=== PATIENT | female | born 1990 | race Caucasian/White ===

== ENCOUNTER 2022-06-14 12:06 | Outpatient (CLI) | payer OTHER, SELFPAY ==
[2022-06-14 13:04] LABS: Basophils Percent Auto 0.5 % (0.2-1.2); Eosinophils Absolute Auto 0.2 K/mm3 (0-0.3); Eosinophils Percent Auto 2.4 % (0-4.4); Hematocrit 38.6 % (37.0-47.0); Hemoglobin 13.4 g/dL (12.0-15.0); Immature Granulocyte Absolute 0.03 K/mm3 (0.00-0.031); Immature Granulocyte Percent A 0.4 % (0-0.5); Lymphocytes Absolute Auto 1.57 K/mm3 (0.9-3.2); Lymphocytes Percent Auto 21.1 % (18.3-44.2); Mean Corpuscular HGB Conc 34.7 g/dl (32-36); Mean Corpuscular Hemoglobin 30.7 pg (26-34); Mean Corpuscular Volume 88.5 fl (80-100); Mean Platelet Volume 9.6 fl (7.4-10.4); Monocytes Absolute Auto 0.7 K/mm3 (0.1-0.6); Neutrophils Absolute Auto 4.9 K/mm3 (1.3-6.7); Neutrophils Percent Auto 66.6 % (45.5-73.1); Platelet Count Result 275 k/mm3 (150-375); Red Blood Count 4.36 M/mm3 (4.2-5.4); Red Cell Distribution Width 12.1 % (11.5-14.5); White Blood Count 7.4 K/mm3 (4.5-10.0)
[2022-06-14 13:47] LABS: HIV 1/2 Ab P24 Ag Result Negative (Negative)
[2022-06-14 14:55] LABS: Hepatitis B Surface Anti Res Positive
[2022-06-14 16:05] LABS: Rubella IgG Antibody > 120.0 IU/ML
[2022-06-15 10:38] LABS: Hepatitis B Surface Antigen Negative (Negative)
[2022-06-15 11:28] LABS: Rapid Plasma Reagin Non-Reactive (NonReactive)
[2022-06-17 15:45] LABS: CMV IgG Antibody <0.60 U/mL (<0.60)
[2022-06-19 15:17] LABS: SMA 2.0 RISK VARIANT NOT DETECTED
[2022-06-24 07:57] LABS: CF Result NEGATIVE (NEGATIVE); Ethnicity NG
[2022-07-02 13:08] LABS: SMA Results Received Yes
== END 2022-06-14 12:07 | disposition home or self-care (01) ==
LOC: ANHLAB 12:17
PROVIDERS: PCP Family Medicine
DX: N91.2 Amenorrhea, unspecified (principal)
CPT/HCPCS: 36415; 81220; 81329; 85025; 86592; 86644; 86703; 86706; 86747; 86762; 86787; 86850; 86900; 86901; 87086; 87088; 87340; G0432

== ENCOUNTER 2023-01-13 15:52 | Outpatient (RCR) | payer OTHER, SELFPAY | END 2023-01-14 07:22 | disposition home or self-care (01) | LOC: ANHOBOP 15:52 | PROVIDERS: PCP Family Medicine; Visit Provider Obstetrics & Gynecology | DX: O48.0 Post-term pregnancy (principal); Z3A.40 40 weeks gestation of pregnancy | CPT/HCPCS: 59025; J2274 ==

== ENCOUNTER 2023-01-15 06:33 | Inpatient (IN) | payer OTHER, SELFPAY ==
[2023-01-15] VITALS (189 sets, daily range): BP systolic 76–138; BP diastolic 32–108; PULSE 63–121; TEMP 36.3–37.2; O2SAT 96–100; BMI 35.5
--- NOTE | 2023-01-15 07:34 | WPDANESEPP ---
Anes - Eval Pre Procedure Procedure: Labor Pain Management Date/Time: 01/15/23 07:34 Surgeon: Breanne Preop Diagnosis: Pain during labor Pre Op Diagnosis: IOL Patient Data Age: 32 Gender: F Height: Weight: Last Vital Signs Pulse 68 01/15/23 07:30 BP 127/75 01/15/23 07:30 Allergies Allergy/AdvReac Type Severity Reaction Status Date / Time Penicillins Allergy Intermediate Hives Verified 01/11/23 17:01 Home Medications Medication Instructions Recorded Confirmed Type vitamin-ferrous fumarate 1 cap PO DAILY 06/22/22 01/04/23 History 65 mg iron-folic acid 1 mg capsule aspirin 81 mg tablet,delayed 81 mg PO DAILY 11/02/22 01/04/23 History release (Adult Low Dose Aspirin) Patient hx anesthesia problems: none Family hx anesthesia problems: none Results Review: All pre-operative results and documents have been reviewed as part of the pre-operative evaluation. [facility] Past Medical History Medical History (Updated 01/15/23 @ 07:36 by Imani Brown CRNA) ADHD (attention deficit hyperactivity disorder) HPV in female Tobacco abuse Surgical History Surgical History History of removal of skin mole (12/31/19) skin tag removal from inner left thigh Family History Family History Father Diabetes mellitus Hypertension Social History Social History (Updated 01/15/23 @ 07:31 by Imani Brown CRNA) Smoking status: Former smoker Tobacco type: cigarettes Smoking end date: 01/18/22 Alcohol intake: current Drinks per week: 1 Substance use: never Substance use type: does not use Lack of Transportation: No Lack of Food: Never True Current Housing: I Have Housing Concerned About Future Housing: No Difficulty Paying Gas/Electric Bills: No Difficulty Paying for Meds: No Currently Unemployed: No Education: Bachelor's Degree Difficulty w/ Childcare or Family Care: No Living arrangements: other Additional living arrangements comments: Occupation/Education: occupation 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
[2023-01-15 08:02] LABS: Basophils Percent Auto 0.4 % (0.2-1.2); Eosinophils Percent Auto 0.5 % (0-4.4); Hematocrit 39.7 % (37.0-47.0); Hemoglobin 13.6 g/dL (12.0-15.0); Immature Granulocyte Absolute 0.03 K/mm3 (0.00-0.031); Immature Granulocyte Percent A 0.4 % (0-0.5); Lymphocytes Absolute Auto 1.33 K/mm3 (0.9-3.2); Lymphocytes Percent Auto 16.2 % (18.3-44.2); Mean Corpuscular HGB Conc 34.3 g/dl (32-36); Mean Corpuscular Volume 87.6 fl (80-100); Mean Platelet Volume 10.2 fl (7.4-10.4); Monocytes Absolute Auto 0.7 K/mm3 (0.1-0.6); Monocytes Percent Auto 8.3 % (2.6-8.5); Neutrophils Absolute Auto 6.1 K/mm3 (1.3-6.7); Neutrophils Percent Auto 74.2 % (45.5-73.1); Platelet Count Result 219 k/mm3 (150-375); Red Blood Count 4.53 M/mm3 (4.2-5.4); Red Cell Distribution Width 12.2 % (11.5-14.5); White Blood Count 8.2 K/mm3 (4.5-10.0)
--- NOTE | 2023-01-15 08:21 | LDADM ---
This patient, Julianna Carr, was admitted to Labor/Delivery/Recovery 107 on 01/15/23 at 06:33. Plans for labor, pain management and were discussed with patient. Patient/family oriented to hospital policies and general routines including ID bracelet, bed and alarms, visiting hours, pain management, procedures, bathroom and other care routines, personal items, smoking policy, room service/diet and guest tray routines, infant security routines, and visiting hours. Patient/Family are encouraged to report perceived risks to care and to ask questions if they do not understand what they are told or what they should do. See OBIX for further documentation.
--- NOTE | 2023-01-15 09:09 | PM.IMHP ---
H&P: HPI History of Present Illness Date/Time: 01/15/23 09:09 Chief Complaint: leakage of fluid Narrative: Julianna is a 32yo @ 40.4wks who presented to L&D with complaints of leakage of fluid that started at 0600. She was found to be grossly ruptured and 1.5/60/-2 at 0700. She reports irregular contractions. No vaginal bleeding. Feeling good movements. She has had regular care with Dr. Raymundo. Her was complicated by: - COVID at 19 weeks... serial growth stands starting at 26 wks, low-dose aspirin Review of Systems Constitutional: Constitutional: Denies chills, Denies fever(s) and Denies headache(s) Eyes: Eyes: Denies change in vision ENT: Denies headache(s) Cardiovascular: Cardiovascular: Denies chest pain and Denies dyspnea Respiratory: Respiratory: Denies dyspnea Genitourinary: Genitourinary: Denies abnormal vaginal bleeding and Denies vaginal discharge Neurologic: Denies headache(s) Psychiatric: Psychiatric: Denies anxiety and Denies depression [facility] Past Medical History Medical History ADHD (attention deficit hyperactivity disorder) HPV in female Tobacco abuse Surgical History Surgical History History of removal of skin mole (12/31/19) skin tag removal from inner left thigh Family History Family History Father Diabetes mellitus Hypertension Social History Social History Smoking status: Former smoker Tobacco type: cigarettes Smoking end date: 03/20/22 Alcohol intake: current Drinks per week: 1 Substance use: never Substance use type: does not use Lack of Transportation: No Lack of Food: Never True Current Housing: I Have Housing Concerned About Future Housing: No Difficulty Paying Gas/Electric Bills: No Difficulty Paying for Meds: No Currently Unemployed: No Education: Bachelor's Degree Difficulty w/ Childcare or Family Care: No Living arrangements: other Additional living arrangements comments: Occupation/Education: occupation 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 Gender identity (if verbalized by the patient): Female Sexual Orientation (if Verbalized by the Patient): Straight or Heterosexual Spiritual care concerns: No Meds Home Medications and Allergies Home Medications Medication Instructions Recorded Confirmed Type vitamin-ferrous fumarate 1 cap PO DAILY 06/22/22 01/15/23 History 65 mg iron-folic acid 1 mg capsule aspirin 81 mg tablet,delayed 81 mg PO DAILY 11/02/22 01/15/23 History release (Adult Low Dose Aspirin) Allergies Allergy/AdvReac Type Severity Reaction Status Date / Time Penicillins Allergy Intermediate Hives Verified 01/11/23 17:01 Vital Signs Vital Signs - 24 hr 01/15/23 07:11 01/15/23 07:15 01/15/23 07:30 Pulse Rate 71 87 68 Blood Pressure 132/78 123/80 127/75 Oxygen Delivery 01/15/23 08:00 01/15/23 08:30 01/15/23 09:01 Pulse Rate 93 102 H 104 H Blood Pressure 120/83 120/76 102/51 L Oxygen Delivery 01/15/23 08:19 Pulse Rate Blood Pressure Oxygen Delivery Room Air Exam Const: General: cooperative, healthy appearing, comfortable, no acute distress and obese Nutritional Appearance: obese Orientation/consciousness: patient oriented x3 Resp: Effort & Inspection: normal respiratory effort Cardio: Rate: regular rate GI: GI Palp: No abdominal tenderness : Other: FHT's: 150's/ mod kylee/ + accels/ no decels - cat 1 TOCO: ctxs q8min Cervix: 1.5/30/-2 (0930) Membranes: intact Presentation: cephalic Skin: General skin exam: normal color Neuro: General: patient oriented x3 Extrem: General: normal to inspection Psych: Appearance: grossly normal Affect: normal affect Attitude:
--- NOTE | 2023-01-15 09:32 | WPDHPUPDATE1 ---
History and Physical Update Update Date/Time: 01/15/23 09:32 History and Physical has been reviewed, including an updated exam of the patient. There are NO changes in the patient's condition. Risks, benefits, and alternatives have been discussed and questions answered. Patient agrees to proceed with procedure.
[2023-01-15] MEDS: LACTATED RINGERS 1,000 ML 125 ML IV CONT ×4 (09:48→23:00)
[2023-01-15] MEDS: OXYTOCIN 30 UNITS/NS 500 ML 30 UNITS/500 ML BAG IV CONT (09:49)
[2023-01-15] MEDS: CALCIUM CARBONATE (TUMS) 500 MG (200 MG ELEMENTAL) PO ×2 (10:18→22:10)
[2023-01-15] MEDS: SODIUM CHLORIDE 0.9% IV 300 ML 600 ML I-UTERINE (20:11)
[2023-01-16] VITALS (136 sets, daily range): BP systolic 98–135; BP diastolic 52–93; PULSE 66–131; RESP 14–18; TEMP 36.2–36.8; O2SAT 95–100
[2023-01-16] MEDS: CLINDAMYCIN 900 MG/D5W 50 ML 900 MG/50 ML PIGGYBACK 50 MG IVPB (00:54)
[2023-01-16] MEDS: LACTATED RINGERS 1,000 ML 125 ML IV CONT (05:10)
--- NOTE | 2023-01-16 05:37 | PM.OBPNLAB ---
Pain Control Date/time seen: 01/16/23 05:37 Pain control: epidural Pelvic Exam Dilation (cm): 4 Effacement (%): 60 station: -2 Amniotic membrane status: Ruptured Contractions Monitor mode: Internal Status status: Category ll Assessment and Plan Plan: Comments: Recurrent late decelerations have been occurring even with intra-uterine resuscitation; pitocin has been halved and held multiple times. She has remained 4cm and thick at 60% effacement, with SROM for 24 hours. Proceed with primary section due to heart decelerations and inability to augment. Risks and benefits have been discussed in detail. Gent/clind for pre-op abx.
--- NOTE | 2023-01-16 05:43 | PC.NURSE ---
This nurse called Dr. Ulloa to verify antibiotic orders for section. Order given to administer Gentamicin 5mg/kg IVPB, Clindamycin 900mg IVPB and Azithromycin 500mg IVPB prior to section.
[2023-01-16] MEDS: GENTAMICIN 80MG/SOD CHL 50 ML 80 MG/50 ML BAG 100 MG IVPB (05:57)
[2023-01-16] MEDS: AZITHROMYCIN 500 MG/NS 250 ML 500 MG/250 ML BAG 250 MG IVPB (06:18)
--- NOTE | 2023-01-16 07:21 | PM.OBPRVD ---
OB - Delivery Note Procedure Delivery date: 01/16/23 Procedure: Procedures Operation Date: 01/16/23 06:00 <No data on this case meets the specified criteria> Events: Other (PROM with prolonged rupture of membranes) Intrapartal Events: Decelerations Delivery augmentation: Pitocin Delivery monitor: External FHT and Internal Uterine Route of delivery: Prior to decision for section, [facility] labor guidelines were considered and discussed with the patient and staff. Decision made to proceed with the section.: Yes Specimen: Yes (placenta) Quantitative Blood Loss (ml): 250 Anesthesia type: Epidural Disposition: Floor [place] Baby Date of : 01/16/23 Time of : 06:43 Weeks of gestation at delivery: 40 (.5) gender: Female Weight (pounds): 8 Weight (ounces): 12 presentation: vertex position: Right Occiput Posterior (with asynclitism) Placenta delivery description: Expressed Cord Vessel Description: 3 Vessels, Clamped/Cut and Delayed Cord Clamping score one minute: 8 score five minutes: 8 Narrative: She was counseled on all risks and benefits in detail due to the inability to augment due to late decelerations in latent labor but prolonged rupture of membranes. She was taken to the operating room where epidural was found to be adequate. She was then prepped and draped in the normal sterile fashion. She received Clindamycin 900mg and Gentamicin 5mg/kg and a time out was performed. A Pfannenstiel incision was made in the skin and carried down to the underlying fascia. The fascia was nicked on either side of the midline and the fascial incision was extended laterally and superiorly using curved Jimenez scissors. The fascia was then elevated using Brittany clamps and the underlying rectus muscles were dissected off the fascia, superiorly and inferiorly. The rectus muscles were then in the midline and the peritoneum was entered bluntly. Once adequate exposure was obtained, a Mobius self retractor was placed within the abdomen. A bladder flap was created. A low transverse incision was made on the lower uterine segment and meconium stained fluid was noted. The occiput was brought to the hysterotomy and the head was easily delivered. The shoulders and body then followed without complications. The had spontaneous cry and the mouth and nose were bulb suctioned. The cord was clamped and cut and the infant was handed off to the awaiting pediatric nurse. A segment of the cord was collected for cord gases. The remaining cord blood was collected for typing. With pitocin infusing, the placenta delivered with gentle traction on the cord without complications. The uterus was then cleared out of all clots and debris using a clean, moist lap. The hysterotomy was then repaired in a running, interlocking fashion using 0 Vicryl. A second layer imbricating suture was then made using 0 Vicryl. A figure of eight was placed in the middle of the hysterotomy, and it was then found to be hemostatic and good uterine tone was noted. The bilateral adnexa were examined and found to be normal. The pelvis was cleared of all clots and fluid. The Mobius retractor was removed from the abdomen. The peritoneum, muscle, and fascia were examined and made hemostatic with bovie cautery. The fascia was then repaired using a 0 Vicryl suture in a running fashion. The subcutaneous tissue was then irrigated and made hemostatic with bovie cautery. The subcutaneous tissue was then reapproximated using 2-0 Vicryl. The skin was then closed using 4-0 Monocryl in a running subcuticular fashion. A Mepilex dressing was placed over the incision. Sponge, lap, needle and instrument counts were correct at the end of the procedure x2. The patient tolerated the procedure well and was taken to recovery in a stable condition. [facility] Delivery Billing Delivery Delivery: Delivery Charge
[2023-01-16] MEDS: DEXTROSE 5%/0.45% SOD CHL 1,000 ML 125 ML IV CONT (12:30)
[2023-01-16] MEDS: KETOROLAC 30 MG/ML VIAL (*BKC) IV PUSH ×2 (15:40→21:40)
[2023-01-16] MEDS: HYDROcodone/acetaminophen (*CRX) 5-325 MG TABLET 1 TAB PO (19:46)
[2023-01-17] MEDS: IBUPROFEN 600 MG TABLET PO ×3 (04:34→23:29)
[2023-01-17] MEDS: HYDROcodone/acetaminophen (*CRX) 5-325 MG TABLET 1 TAB PO ×4 (04:35→23:28)
[2023-01-17 05:43] LABS: Basophils Percent Auto 0.4 % (0.2-1.2); Eosinophils Percent Auto 0.4 % (0-4.4); Hemoglobin 11.2 g/dL (12.0-15.0); Immature Granulocyte Absolute 0.03 K/mm3 (0.00-0.031); Immature Granulocyte Percent A 0.4 % (0-0.5); Lymphocytes Absolute Auto 1.45 K/mm3 (0.9-3.2); Lymphocytes Percent Auto 17.4 % (18.3-44.2); Mean Corpuscular HGB Conc 33.9 g/dl (32-36); Mean Corpuscular Hemoglobin 30.5 pg (26-34); Mean Corpuscular Volume 89.9 fl (80-100); Mean Platelet Volume 10.8 fl (7.4-10.4); Monocytes Absolute Auto 0.7 K/mm3 (0.1-0.6); Monocytes Percent Auto 8.3 % (2.6-8.5); Neutrophils Absolute Auto 6.1 K/mm3 (1.3-6.7); Neutrophils Percent Auto 73.1 % (45.5-73.1); Platelet Count Result 160 k/mm3 (150-375); Red Blood Count 3.67 M/mm3 (4.2-5.4); Red Cell Distribution Width 12.4 % (11.5-14.5); White Blood Count 8.4 K/mm3 (4.5-10.0)
--- NOTE | 2023-01-17 07:21 | PM.OBPNVD ---
OB - PN: Subj Subjective Date/time seen: 01/17/23 07:21 Narrative: POD#1 Julianna reports doing well today. 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 Her pain is controlled. She is tolerating regular diet, passing gas, and ambulating without issues. Bojorquez has been removed but she has not voided yet. She denies any issues with her incision. She is breast feeding. OB - PN: Obj Data Labs 01/17/23 04:30 Labs: Laboratory Results - last 24 hr 01/17/23 04:30 WBC 8.4 RBC 3.67 L Hgb 11.2 L Hct 33.0 L MCV 89.9 MCH 30.5 MCHC 33.9 RDW 12.4 Plt Count 160 MPV 10.8 H Immature Gran % (Auto) 0.4 Neut % (Auto) 73.1 Lymph % (Auto) 17.4 L [place] % (Auto) 8.3 Eos % (Auto) 0.4 Baso % (Auto) 0.4 Lymph # (Auto) 1.45 [place] # (Auto) 0.7 H Eos # (Auto) 0.0 Baso # (Auto) 0.0 Abs Immat Gran (auto) 0.03 Absolute Neuts (auto) 6.1 Absolute Nucleated RBC 0.0 Nucleated RBC % 0.0 OB - PN A/P Assessment and Plan (1) S/P section: Code(s): Z98.891 - History of uterine scar from previous surgery Status: Acute Plan day: 1 Plan: routine care Time Spent With Patient Time: Total time spent is greater than 50% in coordination of care (as documented) at patient's floor/unit and/or counseling patient: Review of Systems Constitutional: Constitutional: Denies chills, Denies fever(s) and Denies headache(s) Eyes: Eyes: Denies change in vision ENT: Denies dizziness and Denies headache(s) Cardiovascular: Cardiovascular: Denies chest pain, Denies palpitations and Denies dyspnea Respiratory: Respiratory: Denies cough and Denies dyspnea Gastrointestinal: Gastrointestinal: Denies nausea and Denies vomiting Genitourinary: Comments: normal bleeding Neurologic: Denies dizziness and Denies headache(s) Endocrine: Endocrine: Denies palpitations Exam Const: General: cooperative, comfortable and no acute distress Orientation/consciousness: patient oriented x3 Resp: Effort & Inspection: normal respiratory effort Auscultation: clear to auscultation bilaterally Cardio: Rate: regular rate GI: Inspection: non-distended and incision (covered with clean dressing) GI Palp: Yes abdominal tenderness (appropriate) and Yes Soft to palpation Auscultation: normal bowel sounds : Other: fundus firm Skin: General skin exam: normal color Neuro: General: patient oriented x3 Extrem: General: normal to inspection Psych: Appearance: grossly normal Affect: normal affect Attitude: cooperative
[2023-01-17 08:40] VITALS: BP 103/71; PULSE 69; RESP 16; TEMP 36.7; O2SAT 98
[2023-01-17] MEDS: DOCUSATE SODIUM 100 MG CAPSULE PO ×2 (10:09→23:37)
[2023-01-17] MEDS: MULTIVIT/MIN/PREN/FOL AC/IRON TABLET 1 TAB PO (10:10)
--- NOTE | 2023-01-17 12:18 | WPDANLDPN2 ---
Anes-Prog Note L&D Date/Time: 01/17/23 12:18 Comfortable throughout: labor and delivery Neuraxial method: epidural Epidural/Spinal procedure site: clean & non-tender Neuro status: Neuro function grossly intact. Cardiovascular status: normal Respiratory status: normal Airway patency: baseline Mental status: baseline Post-Op hydration status: normal Vital Signs: Last Vital Signs Temp 98.1 F 01/17/23 08:40 Pulse 69 01/17/23 08:40 Resp 16 01/17/23 08:40 BP 103/71 01/17/23 08:40 Pulse Ox 98 01/17/23 08:40 O2 Del Method Room Air 01/16/23 16:00 Pain score (VAS): 0/10 I/O: Intake & Output 01/16/23 01/17/23 01/17/23 23:59 07:59 15:59 Intake Total 1500 800 Output Total 1000 300 Balance 500 500 Post-procedural complaints: none Patient feedback: Patient satisfied with anesthetic care.
--- NOTE | 2023-01-17 12:21 | WPDANLDNPN2 ---
Anes-Prog Note L&D-Neuraxial Date/Time: 01/17/23 12:21 Neuraxial medications: epidural PF morphine Opiod-related complaints: none Patient feedback: Patient satisfied with post-operative pain management.
[2023-01-17 14:18] LABS: Rapid Plasma Reagin Non-Reactive (NonReactive)
--- NOTE | 2023-01-17 16:08 | PC.NURSE ---
[id number] Consulted with patient to assess needs related to . Mother led conversation with her experience with feeding baby so far. Mother works well with her infant with encouragement. Reviewed working with , supporting breast and how to protect the nipples with an optimal deep latch, good positioning, and good hand washing. Encouraged understanding the benefits of skin to skin, responding to feeding cues, frequencies of feeding 8-12 times in 24 hours (approximately 2-3 hours), duration of feedings, milk production, intake/output feeding sheet and signs of adequate intake encouraging swallowing at the breast. Reviewed positioning and alignment, supporting breast, off-centered (asymmetrical latch) and leading with the chin with big, open, wide gape. Infant latched optimally to the right breast in football position. Education given to mother of how to visualize suck/swallow ratios and listen for drinking at the breast. was able to maintain latch without discomfort to mother. Infant pulls back at times to latch and suckle on the nipple only. Discussed with mother the difference between non-nutritive and nutritive suckling. Nipple care reviewed with optimal latch, good positioning and using clean hands when feeding her and touching her breast. Reviewed the positive signs of appropriate intake using the pie demonstration. Infant is meeting the goals at this time. Resources used to facilitate learning were used from the tool, mom and baby guide. Mother voiced understanding of the education shared, to call for assistance if the does not latch or if there is discomfort with . Reported to the primary RN.
[2023-01-17 18:30] VITALS: BP 104/67; PULSE 84; RESP 16; TEMP 36.7; O2SAT 98
[2023-01-18] MEDS: HYDROcodone/acetaminophen (*CRX) 5-325 MG TABLET 1 TAB PO ×3 (06:22→21:02)
--- NOTE | 2023-01-18 07:20 | P.PNOB_ITS ---
OB - PN: Subj Subjective Date/time seen: 01/18/23 07:20 Narrative: POD#2 Julianna reports doing well today. Her bleeding is roll winder. Her pain is controlled. She is tolerating regular diet, voiding, passing gas, and ambulating without issues. She denies any issues with her incision. She is breast feeding. She would like to go home this afternoon. OB - PN: Obj Data Labs 01/17/23 04:30 Labs: Laboratory Results - last 24 hr 01/15/23 07:51 RPR Non-reactive OB - PN A/P Assessment and Plan (1) S/P section: Code(s): Z98.891 - History of uterine scar from previous surgery Status: Acute Plan day: 2 Plan: routine care and discharge home Comments: - Pelvic rest; take meds as prescribed - Incision care/no heavy lifting - ER return precautions: fever, n/v/abd pain, bleeding, HTN Time Spent With Patient Time: Total time spent is greater than 50% in coordination of care (as documented) at patient's floor/unit and/or counseling patient: Review of Systems Constitutional: Constitutional: Denies chills, Denies fever(s) and Denies hea dache(s) Eyes: Eyes: Denies change in vision ENT: Denies dizziness and Denies headache(s) Cardiovascular: Cardiovascular: Denies chest pain, Denies palpitations and Denies dyspnea Respiratory: Respiratory: Denies cough and Denies dyspnea Gastrointestinal: Gastrointestinal: Denies nausea and Denies vomiting Genitourinary: Comments: normal bleeding Neurologic: Denies dizziness and Denies headache(s) Endocrine: Endocrine: Denies palpitations Exam Const: General: cooperative, comfortable and no acute distress Orientation/consciousness: patient oriented x3 Resp: Effort & Inspection: normal respiratory effort Auscultation: clear to auscultation bilaterally Cardio: Rate: regular rate GI: Inspection: non-distended and incision (covered with clean dressing) GI Palp: Yes abdominal tenderness (appropriate) and Yes Soft to palpation Au scultation: normal bowel sounds : Other: fundus firm Skin: General skin exam: normal color Neuro: General: patient oriented x3 Extrem: General: normal to inspection Psych: Appearance: grossly normal Affect: normal affect 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
[2023-01-18] MEDS: MULTIVIT/MIN/PREN/FOL AC/IRON TABLET 1 TAB PO (07:58)
[2023-01-18] MEDS: DOCUSATE SODIUM 100 MG CAPSULE PO ×2 (07:58→15:28)
[2023-01-18] MEDS: IBUPROFEN 600 MG TABLET PO ×3 (07:58→21:01)
[2023-01-18 08:25] VITALS: BP 108/72; PULSE 75; RESP 16; TEMP 36.9; O2SAT 98
--- NOTE | 2023-01-18 10:04 | PC.NURSE ---
[id number] Purposefully rounded to assess for needs. Mother verbalizes she is able to independently latch with appropriate positioning/alignment. She denies any nipple discomfort and is responsively . Infant is currently meeting outcomes for weight, output, jaundice and feeding frequencies of 8-12 times in 24 hours. Mother is encouraged to call for assistance if her doesn?t latch or there is discomfort with latching. Parents voiced understanding of information shared.
[2023-01-18 20:30] VITALS: BP 123/85; PULSE 77; RESP 16; TEMP 36.4; O2SAT 98
[2023-01-19] MEDS: HYDROcodone/acetaminophen (*CRX) 5-325 MG TABLET 1 TAB PO (07:00)
[2023-01-19] MEDS: IBUPROFEN 600 MG TABLET PO (07:00)
[2023-01-19 08:30] VITALS: BP 118/78; PULSE 63; RESP 16; TEMP 37.2; O2SAT 98
[2023-01-19] MEDS: DOCUSATE SODIUM 100 MG CAPSULE PO (10:02)
[2023-01-19] MEDS: MULTIVIT/MIN/PREN/FOL AC/IRON TABLET 1 TAB PO (10:02)
--- NOTE | 2023-01-19 13:56 | PC.NURSE ---
[id number] Consulted with patient to assess needs related to . Reviewed working with infant, supporting breast and how to protect the nipples with an optimal deep latch, good positioning, and good hand washing. Mother has excoriations on bilateral nipples. We discussed working with positioning and improving the latch making sure is latched deeply. Reviewed positioning and alignment, supporting breast, off-centered (asymmetrical latch) and leading with the chin with big, open, wide gape. latched optimally to the right breast in football position. Education given to mother of how to visualize suck/swallow ratios and listen for drinking at the breast. was able to maintain latch without discomfort to mother. Nipple care reviewed with optimal latch, good positioning and using clean hands when feeding her infant and touching her breast. mother practiced detaching infant after an effective feeding, then she practiced burping. Mother was slightly assisted latching infant to the left breast using the football positioning to obtain a optimal latch. Infant effectively breastfed with no pain to mother. Resources used to facilitate learning were used from the tool, mom and baby guide. Mother is feeding appropriately for growth of and understands stimulating to eat if needed. Infant has had appropriate feedings in the last 24 hours meets the outcomes for weight, output and jaundice at this time. Mother states she is confident to continue effectively her at home. Reinforced understanding of milk production, transition of milk, signs of adequate intake, transition of stool, prevention/relief of engorgement, responsive watching for feeding cues, the different methods of stimulating to breastfeed on demand (8-12 times in 24 hours), community resources, medication information reviewed per [employer] and when to call a provider using the resource of the mom and baby guide.
--- NOTE | 2023-01-20 08:03 | PM.OBDSVD ---
DS: Admitting Diagnosis Discharge Date 01/19/23 Admitting Diagnosis PROM DS: Discharge Diagnosis Discharge Diagnosis (1) S/P section: Code(s): Z98.891 - History of uterine scar from previous surgery Status: Acute OB - DS: Summary OB Procedures : Ultrasound OB Procedures Intrapartum: low cervical, transverse OB Procedures: : None Peripartum Data Delivery Method: Section Procedures: Procedures Operation Date: 01/16/23 06:00 Actual Procedure Side Surgeon p Section Not Applicable Neyda Ulloa MD complications: none [place]: Gender: Female Disposition of : home Status at Discharge Functional status at discharge: independent ambulation Overall status at discharge: patient is back to baseline Time Spent with Patient Time attestation: Total time spent providing and/or coordinating discharge services: Time spent: Less than 30 minutes Exam Const: General: cooperative, comfortable, no acute distress and obese Orientation/consciousness: patient oriented x3 Resp: Effort & Inspection: normal respiratory effort Auscultation: clear to auscultation bilaterally Cardio: Rate: regular rate GI: Inspection: non-distended and incision (covered w/ Mepilex dressing) GI Palp: No abdominal tenderness and Yes Soft to palpation Auscultation: normal bowel sounds : Other: fundus firm Skin: General skin exam: normal color Neuro: General: patient oriented x3 Extrem: General: normal to inspection Psych: Appearance: grossly normal Affect: normal affect Attitude: cooperative DS: Data Data Completed and Pending Completed studies during hospitalization: Pending at discharge 01/16/23 06:43 Surgical [PTH] Routine Discharge Plan Discharge Attending physician on discharge: Neyda Ulloa Discharging Clinician: Neyda Ulloa Anticipated Discharge Date/Time: 01/19/23 11:00 Patient Disposition: Home, Self-Care Activity: may shower, may drive after 2 weeks and pelvic rest Diet: regular Discharge Instructions: No heavy lifting >10 lbs for 6 weeks. Removed dressing on 01/22/23 unless it becomes wet or starts to peel off (then you can remove sooner); incision open to air after, do not put any creams/ointments on your incision. Education: Mom and Baby Guide Given to: Mother Follow-Up: Call your delivering provider's office for an appointment to be seen in: 4 Weeks Mom and baby should come to the [facility] for the follow-up appointment. Appointment Date/Time: January 20, 2023 at 8:00 am What to expect at your follow-up visit: Blood Pressure Check Physical Assessment Call [phone] if you are unable to keep your appointment time. BREAST CARE: * Wear a snug supportive bra. * For engorgement discomfort: Breast Feeding: * Apply warm moist washcloths * Express milk as needed to relieve engorgement * Wear loose clothing * For sore nipples: * Identify correct latch-on * Apply warm moist washcloths before and after nursing * Air dry nipples after nursing * May apply Lansinoh cream to nipples ABDOMINAL INCISION: (if applicable) * Allow incision to air dry * Do NOT use lotions for powders on your incision * When showering, allow soap and water to run over the incision, but do not wash incision * Change your pad frequently throughout the day * No tub baths until seen by your physician - You may shower ACTIVITY: * Rest as much as possible. * Do not exercise or lift anything heavier than your baby (such as laundry or other children.) * Avoid stairs or driving as much as possible. * Do not put anything into the vagina. No douching, tampons, or sexual activity until seen by physician. NOTIFY PHYSICIAN IF YOU HAVE ANY QUESTIONS OR IF ANY OF THE FOLLOWING SYMPTOMS OCCUR: * If
[2023-01-20 08:27] VITALS: BP 120/75; PULSE 88; RESP 18; TEMP 36.6; O2SAT 98
== END 2023-01-19 13:10 | disposition home or self-care (01) | DRG 788 ==
LOC: ANHLDR 07:22 → ANHOB2 01-16 17:28 → ANHLDR 01-20 10:58 → ANHOB2 01-20 10:58
PROVIDERS: Admitting Provider Obstetrics & Gynecology; PCP Family Medicine; Visit Provider Obstetrics & Gynecology
PROC: 10D00Z1 Extraction of Products of Conception, Low, Open Approach (ICD-10-PCS; CPT 59514; principal; 2023-01-16 06:00)
DX: O42.02 Full-term premature rupture of membranes, onset of labor within 24 hours of rupture (principal); Z37.0 Single live birth; Z3A.40 40 weeks gestation of pregnancy; O35.9XX0 Maternal care for (suspected) fetal abnormality and damage, unspecified, not applicable or unspecified
CPT/HCPCS: 36415; 59025; 85025; 86592; 86850; 86900; 86901; 88307; A9270; J0456; J1580; J1885; J2274; J2405; J2590; J2795; J7030; J7120